=== PATIENT | female | born 1990 | race Hispanic/Latino ===

== ENCOUNTER 2018-08-25 18:11 | Observation (INO) | payer OTHER ==
[~2018-08-25] VITALS: Ht 160 cm; Wt 88.0 kg
[2018-08-25 19:00] LABS: APPEARANCE,URINE Clear (CLEAR); BILIRUBIN,URINE Negative (NEGATIVE); COLOR,URINE Yellow (YELLOW); GLUCOSE, URINE (UA) Negative (NEGATIVE); KETONES,URINE Negative (NEGATIVE); LEUKOCYTE ESTERASE ,URINE Trace (NEGATIVE); NITRATE,URINE Negative (NEGATIVE); OCCULT BLOOD,URINE Negative (NEGATIVE); PROTEIN,URINE Negative (NEGATIVE); UROBILINOGEN,URINE 0.2 mg/dL (0.2-1.0)
[2018-08-25 19:07] LABS: AMPHET/METH SCREEN,URINE NEGATIVE (NEGATIVE); BARBITURATE SCREEN, URINE NEGATIVE (NEGATIVE); BENZODIAZEPINES SCREEN,URINE NEGATIVE (NEGATIVE); CANNABINOID SCREEN,URINE NEGATIVE (NEGATIVE); COCAINE SCREEN,URINE NEGATIVE (NEGATIVE); OPIATE SCREEN,URINE NEGATIVE (NEGATIVE); PHENCYCLIDINE SCREEN,URINE NEGATIVE (NEGATIVE)
[2018-08-25] MEDS ORDERED: MAGNESIUM CITRATE 296 ML SOLUTION PO SCH (19:15)
[2018-08-25 19:29] LABS: BACTERIA,URINE Few /HPF (None Seen); RBC,URINE 0-1 /HPF (0-1); SQUAMOUS EPITHELIAL CELL,UR Few /HPF (0-2)
[2018-08-25] MEDS ORDERED: LACTATED RINGERS 1000ML IV SCH (19:30)
[2018-08-25] MEDS: TERBUTALINE SULFATE VIAL 1MG/ML SQ PRN ×3 (19:42→21:20)
[2018-08-25] MEDS ORDERED: PHARMACY COMMUNICATION MISC SCH (19:45)
[2018-08-25] MEDS ORDERED: BUTORPHANOL TARTRATE 2 MG/ML IVP ONE (23:15)
[2018-08-25] MEDS ORDERED: BUTORPHANOL TARTRATE 2 MG/ML ONE (23:26)
[2018-08-26] MEDS ORDERED: MAGNESIUM SULFATE 1,000 ML IV PRN (01:54)
[2018-08-26] MEDS ORDERED: MAGNESIUM 4GM PREMIX 100ML 100 ML IV SCH (02:00)
[2018-08-26] MEDS ORDERED: CALCIUM GLUCONATE 1 GM/10 ML VIAL IV PRN (02:00)
[2018-08-26] MEDS ORDERED: PHARMACY COMMUNICATION MISC SCH (02:00)
[2018-08-26] MEDS ORDERED: MAGNESIUM 4GM PREMIX 100ML 100 ML IV ONE (02:19)
[2018-08-26] MEDS ORDERED: MAGNESIUM SULFATE 1,000 ML IV ONE (02:19)
[2018-08-26] MEDS: CELESTONE SOLUSPAN 6 MG/ML 5ML VIAL IM SCH ×2 (02:30→14:32)
[2018-08-26] MEDS: AMPICILLIN 2GM+NS 100ML 100 ML IV SCH ×2 (02:30→09:00)
[2018-08-26 06:18] LABS: BASOPHILS % (AUTO) 0.2 % (0.0-5.0); HEMATOCRIT 31.3 % (36-48); LYMPHOCYTES % (AUTO) 10.1 % (21.0-51.0); MEAN CORPUSCULAR HEMOGLOBIN 30.4 pg (27.0-33.0); MEAN CORPUSCULAR HGB CONC 34.3 g/dL (32.0-36.0); MEAN CORPUSCULAR VOLUME 88.5 fL (79-99); MONOCYTES % (AUTO) 2.3 % (3.0-13.0); NEUTROPHILS % (AUTO) 87.4 % (40.0-77.0); PLATELET COUNT (AUTO) 182 K/uL (130-400); RED BLOOD CELL COUNT(AUTO) 3.53 MIL/uL (4.00-5.50); RED CELL DISTRIBUTION WIDTH 14.3 % (11.0-15.5); WHITE BLOOD COUNT (AUTO) 9.4 K/uL (4.8-10.8)
[2018-08-26 06:40] LABS: ALBUMIN 2.6 g/dL (3.5-5.0); BILIRUBIN,TOTAL 0.3 mg/dL (0.2-1.0); CREATININE 0.5 mg/dL (0.5-1.5); THYROID STIMULATING HORMONE 0.98 uIU/mL (0.36-3.74); TOTAL PROTEIN, SERUM 6.2 g/dL (6.0-8.3)
[2018-08-26 06:59] LABS: RAPID PLASMA REAGIN NONREACTIVE (NONREACTIVE)
[2018-08-27 07:14] LABS: HEPATITIS Bs ANTIGEN SCREEN P Negative (Negative)
== END 2018-08-26 15:00 | disposition home or self-care (01) ==
LOC: EDH 18:11 → LDH 18:25
PROVIDERS: ADMIT Obstetrics & Gynecology; ATTEND Obstetrics & Gynecology
DX: O34.63 Maternal care for abnormality of vagina, third trimester (principal); O99.613 Diseases of the digestive system complicating pregnancy, third trimester; K59.00 Constipation, unspecified; Z3A.34 34 weeks gestation of pregnancy; Z79.899 Other long term (current) drug therapy
CPT/HCPCS: 36415; 76805; 80053; 80305; 81001; 84443; 85025; 86592; 86701; 86850; 86900; 86901; 87340; 87390; 96365; 96366; 96368; 96372 ×2; 99284; A4314; A4510; A4600; G0378 ×2; J0290 ×2; J0595; J0702; J3105; J3475 ×2; J7120; 96360; 96361